=== PATIENT | male | born 1960 | race Caucasian/White ===

== ENCOUNTER 2022-12-21 13:16 | Emergency (ER) | payer OTHER ==
--- NOTE | 2022-12-21 13:25 | ERPHSYRPT ---
- History of Present Illness Time Seen by Provider: 12/21/22 13:25 Source: patient Exam Limitations: no limitations Physician History: This is a 62-year-old white male patient who is a [facility] presents with shoulder pain flareup. Patient has chronic right shoulder pain but his pain is not usually as bad as it is over the last 2 to 3 days. He did not fall or suffer any traumatic injury. His pain primarily occurs when he raises his hands above his head. Patient has a history of hypertension, gastroesophageal reflux disease and hypothyroidism. He denies chest pain. He denies shortness of breath Occurred: days ago Method of Injury: other (No acute, traumatic injury) Quality: sharpness (In the right shoulder when he raises his shoulder/hands above his head) Severity of Pain-Max: moderate Severity of Pain-Current: mild Extremities Pain Location: shoulder: right Modifying Factors: Improves With: movement (Raising his right hand above his head because of sharp pain in his right shoulder) Associated Symptoms: none Allergies/Adverse Reactions: cyclobenzaprine [From Flexeril] Allergy (Verified 12/21/22 13:35) morphine Allergy (Verified 12/21/22 13:35) gabapentin Adverse Reaction (Verified 12/21/22 13:35) Home Medications: Levothyroxine Sodium [Synthroid] 25 mcg PO DAILY 12/21/22 [History] Metoprolol Tartrate 25 mg [Lopressor 25MG Tab] 25 mg PO DAILY 12/21/22 [History] Pantoprazole 20 mg [Protonix 20MG Tablet] 20 mg PO DAILY 12/21/22 [History] Vit D3/Vit K2/Calc Frutoborate [Move Free Vviqo-Lihyny-L2-D3] 1 each PO DAILY 12/21/22 [History] Travel Risk - International Travel Have you traveled outside of the country in past 3 weeks: No - Coronavirus Screening Are you exhibiting any of the following symptoms?: No Close contact with a COVID-19 positive Pt in past 14-21 Days: No - Review of Systems Constitutional: No Symptoms Eyes: No Symptoms Ears, Nose, & Throat: No Symptoms Respiratory: No Symptoms Cardiac: No Symptoms Abdominal/Gastrointestinal: No Symptoms Genitourinary Symptoms: No Symptoms Musculoskeletal: Joint Pain (Sharp right pain when he raises his hand above his right shoulder) Skin: No Symptoms Neurological: No Symptoms Psychological: No Symptoms Endocrine: No Symptoms Hematologic/Lymphatic: No Symptoms Immunological/Allergic: No Symptoms All Other Systems: Reviewed and Negative - Past Medical History Pertinent Past Medical History: Yes - Past Surgical History Past Surgical History: Yes - Nursing Vital Signs Nursing Vital Signs: Initial Vital Signs Temperature 97.2 F 12/21/22 13:31 Pulse Rate 57 L 12/21/22 13:31 Respiratory Rate 18 12/21/22 13:31 Blood Pressure 107/69 12/21/22 13:31 O2 Sat by Pulse Oximetry 99 12/21/22 13:31 Pain Scale Pain Intensity 8 - Physical Exam General Appearance: no apparent distress, alert Eyes, Ears, Nose, Throat Exam: normal ENT inspection, moist mucous membranes Neck Exam: normal inspection, non-tender, supple, full range of motion Cardiovascular/Respiratory Exam: chest non-tender, no respiratory distress Abdominal Exam: non-tender Back Exam: normal inspection, normal range of motion, No CVA tenderness, No v ertebral tenderness Shoulder Exam: normal inspection, no evidence of injury, normal ROM, pain (When he raises his right hand above his head he has pain in his right shoulder) Elbow/Forearm Exam: normal inspection, non-tender, no evidence of injury, normal ROM Wrist Exam: normal inspection, non-tender, no evidence of injury, normal ROM Hand Exam: normal inspection, non-tender, no evidence of injury, normal ROM Neuro/Tendon Exam: normal sensation, normal motor functions, normal tendon functions, responds to pain, no evidence tendon injury Mental Status Exam: alert, oriented x 3, cooperative Skin Exam: normal color, warm, dry SpO2 Interpretation: normal O2 Delivery: Room Air - Course Nursing assessment & vital signs reviewed: Yes - Progress Progress: improved, pain not gone completely Progress Note: 12/21/22 14:21 This patient's medical issues 1 of low complexity. The level of complexity and the work-up performed is based on review of the patient's past medical history, review of the patient's drug allergy list, review of the patient's medication list, history present illness and physical findings on examination. The work-up in this patient does not require any laboratory studies or radiographic studies. We will treat his symptoms. He did not have any acute traumatic injury. He does not have chest pain and I think it is very low likelihood of any chest or cardiac issue. This patient has recurrent exacerbation of a chronic problem, that he has, right shoulder pain. We will provide him with an injection of Solu-Medrol intramuscularly and then discharge him to home with a prescription to be remotely sent to his pharmacy that includes prednisone and Robaxin muscle relaxant. Counseled pt/family regarding: diagnosis, need for follow-up Medical Desision Making - Diagnostic Testing Diagnostic test were ordered, analyzed, and reviewed by me: No - Risk of complications The pt has a mod risk of morbidity or mortality based on: Need for prescription drug management - Departure Departure Disposition: Home Clinical Impression: Chronic right shoulder pain Condition: Stable Critical Care Time: No Additional Instructions: Take your medication as prescribed. Call your prescribing provider today to make arrangements for follow-up appointment in the next 3 to 5 days. Prescriptions: Prednisone 10 mg [Deltasone 10 mg] 10 mg PO TID #12 tablet Methocarbamol [Robaxin] 500 mg PO QID PRN #20 tablet PRN Reason: Muscle Spasms
[2022-12-21 13:32] VITALS: O2SAT 99
[2022-12-21] MEDS ORDERED: solu-MEDROL 125 MG, Sterile H2O 10 ml 2 ML IM ONE ×2 (14:26)
[2022-12-21] MEDS ORDERED: Sterile H2O 10 ml IJ ONE (14:34)
[2022-12-21] MEDS ORDERED: solu-MEDROL ONE (14:34)
[2022-12-21 14:39] VITALS: BP 96/66; PULSE 60
== END 2022-12-21 14:43 | disposition home or self-care (01) ==
LOC: ED 13:16
DX: G89.29 Other chronic pain (principal); M25.511 Pain in right shoulder; I10 Essential (primary) hypertension; Z79.52 Long term (current) use of systemic steroids; Z79.899 Other long term (current) drug therapy
CPT/HCPCS: 96372; 99282; J2930

== ENCOUNTER 2023-04-04 11:42 | Emergency (ER) | payer OTHER ==
[2023-04-04] MEDS ORDERED: SUBLIMAZE 100 MCG/2 ML IV ONE (11:46)
[2023-04-04 11:49] VITALS: TEMP 97.2
[2023-04-04] MEDS ORDERED: Sodium Chloride 0.9% 1000 ML 1,000 ML IV SCH (12:00)
[2023-04-04 12:16] LABS: Absolute Neutrophil Ct (ANC) 3.83 x10^3/uL (1.4-6.9); BASOPHIL % 0.6 % (0.0-0.4); Basophil (Absolute #) 0.04 x10^3/uL (0-0.4); Eosinophil % 5.6 % (0.00-5.0); Eosinophil (Absolute #) 0.36 x10^3/uL (0-0.5); Hematocrit 42.2 % (42-50); Hemoglobin 14.3 g/dL (12.5-18.0); IMMATURE GRAN # 0.01 x10^3u/L (0.00-0.03); IMMATURE GRAN % 0.2 % (0.00-0.4); Lymphocyte (Absolute #) 1.59 x10^3/uL (1.0-4.6); Lymphocytes % 24.9 % (24.0-44.0); Mean Cell Volume 95.3 fL (78-100); Mean Corpuscular Hemoglobin 32.3 pg (26-32); Mean Corpuscular Hgb Concent. 33.9 g/dL (32-36); Monocyte (Absolute #) 0.55 x10^3/uL (0.0-1.3); Monocytes % 8.6 % (0.0-12.0); Neutrophil % 60.1 % (36.0-66.0); Platelet Count 253 x10^3/uL (150-450); Red Blood Count 4.43 x10^6/uL (4.1-5.6); Red Cell Distribution Width 13.2 % (11.5-14.0); White Blood Count 6.4 x10^3/uL (4.0-10.5)
[2023-04-04] MEDS ORDERED: SUBLIMAZE 100 MCG/2 ML ONE (12:28)
[2023-04-04] MEDS ORDERED: Sodium Chloride 0.9% 1000 ML 1,000 ML ONE (12:29)
[2023-04-04 12:30] LABS: ALBUMIN 4.2 g/dL (3.5-5.0); ALKALINE PHOSPHATASE 138 U/L (38-126); ANION GAP 13.9 MEQ/L (5-15); BLOOD UREA NITROGEN 29 mg/dL (9-20); CHLORIDE 105 mmol/L (98-107); Calcium 9.2 mg/dL (8.4-10.2); Carbon Dioxide 22 mmol/L (22-30); Creatinine 1 1.26 mg/dL (0.66-1.25); EST GLOMERULAR FILTRATION RATE > 60.0 ML/MIN; Glucose 103 mg/dL (74-106); LIPASE 38 U/L (23-300); MAGNESIUM 1.6 mg/dL (1.6-2.3); Potassium 4.3 mmol/L (3.5-5.1); SGOT/AST 25 U/L (17-59); SGPT/ALT 18 U/L (0-50); SODIUM 137 mmol/L (137-145); Total Protein 7.5 g/dL (6.3-8.2)
[2023-04-04 12:33] LABS: D-DIMER QUANTITATIVE 0.57 mg/L (0.0-0.50); INR 0.98 (0.8-3.0); PROTIME 10.7 SECONDS (9.4-12.5)
[2023-04-04 12:59] LABS: Appearance Clear (Clear); Bacteria None Seen /HPF (None Seen); Bilirubin Negative (Negative); Blood Negative (Negative); Epithelial Cells None Seen /HPF (None Seen); Glucose, Urine Negative (Negative); Hyaline Casts NONE SEEN /LPF (0-2); Ketones Negative (Negative); Leukocyte Esterase Negative (Negative); Nitrite Negative (Negative); Ph 5.5 (4.6-8.0); Protein,Urine Dip Negative (Negative); RBC 0-2 /HPF (0-5); Specific Gravity <=1.005 (1.005-1.030); Urobilinogen 0.2 mg/dL (0.2); WBC 0-2 /HPF (0-5)
[2023-04-04 12:59] LABS: Erythrocyte Sedimentation Rate 67 mm/hr (0-15)
[2023-04-04 13:03] LABS: INFLUENZA A NEGATIVE (NEGATIVE); INFLUENZA B NEGATIVE (NEGATIVE); RESPIRATORY SYNCTIAL VIRUS NEGATIVE (NEGATIVE); SARS-CoV-2 Xpert Express NEGATIVE (NEGATIVE)
--- NOTE | 2023-04-04 13:09 | XRAY ---
CLINICAL HISTORY:pain COMPARISON:None TECHNIQUE:X ray of the chest, PA view FINDINGS: Prominent right hilar bronchovascular markings is seen. Enlarged cardiac size is seen. Minimal blunting of left costophrenic angle is seen, could be pleural thickening / effusion. Radiographic examination of the chest demonstrates clear lungs. Normal configuration of the mediastinum. The viv are normal in size and position. The bony thorax is unremarkable. IMPRESSION: 1. Prominent right hilar bronchovascular markings is seen. 2. Cardiomegaly for ECHO correlation. 3. Minimal blunting of left costophrenic angle is seen, could be pleural thickening / effusion. Electronically Signed by: Alejandro Abreu MD. (04/04/2023 12:08:10 TRANSPORT ASSISTANT)
[2023-04-04 13:10] LABS: ADD URINE CULTURE? NO (NO)
--- NOTE | 2023-04-04 14:12 | XRAY ---
CLINICAL HISTORY:pain COMPARISON:None. TECHNIQUE:Contiguous 3.[address] images of the chest were acquired with the administration of intravenous contrast. Coronal and sagittal reconstructions were obtained. 20 cc Multihance was administered for post contrast images. FINDINGS: No evidence of pulmonary embolism. Emphysematous changes are seen involving the scanned lungs manifested by hyperinflated lungs, widened retrosternal space, low flat diaphragm, transverse parallel ribs & ribbon shaped heart associated with scattered bilateral emphysematous bullae & sub-pleural blebs para-septal in location predominantly involving more the right lung apex, in addition fine linear atelectatic/fibrous bands reaching the pleural surface are seen involving the left lung. 6 mm perifissural calcified nodule noted in apical segment of left upper lobe mostly fibrotic for 3-6 monthly LDCT follow up. The scanned pulmonary parenchyma shows no definite consolidative lesions. No free or encysted pleural effusion. Heart size is normal, and there is no pericardial effusion. No pathologically enlarged mediastinal, hilar or axillary lymph node was identified. There is no definite mass lesion in the chest wall. Degenerative changes of the visualized scanned spine with no osseous abnormality detected. The scanned upper abdomen is unremarkable. IMPRESSION: 1. No evidence of pulmonary embolism. 2. CT findings kept with bilateral emphysematous pulmonary changes associated with right apical fibrous/atelectatic bands as forementioned for clinical correlation. 3. 6 mm perifissural nodule was noted in the apical segment of the left upper lobe mostly fibrotic for 3-6 monthly LDCT follow-ups (LUNG RAD III). Electronically Signed by: Alejandro Abreu MD. (04/04/2023 13:10:41 CHIEF DISPATCHER SERVICE)
--- NOTE | 2023-04-04 14:22 | XRAY ---
CLINICAL HISTORY:pain COMPARISON:None TECHNIQUE:MSCT For the brain, without contrast. Images were sent through PACs for diagnostic interpretation. FINDINGS: Mild widening of the frontoparietal sulci and sylvian fissures, and basal cisterns. Findings Are consistent with a normal aging brain. Ischemic deep white matter changes are seen at the forceps minor, forceps major, periventricular, and centrum semiovale regions expressed by hypodense deep white matter findings are consistent with the consequences of small vessel disease. No midline shifts or deformity. No intracerebral or extra axial hematoma. Normal size and configuration of the cerebral ventricles. Normal CT appearance of the posterior fossa structures, namely the cerebellar hemispheres, brainstem, and cerebellar peduncles. The IACs are unremarkable. The cerebellopontine angles are clear. The pituitary gland, the pineal gland, and the optic chiasm are unremarkable. The osseous structures in the skull base are unremarkable. No definite calvarial fractures. The scanned paranasal sinuses show bilateral ethmoid and frontal sinusitis with a deviated nasal septum to the left and a spur is noted. IMPRESSION: 1. Mild widening of the frontoparietal sulci and sylvian fissures, and basal cisterns. Findings are consistent with a normal aging brain. 2. Ischemic deep white matter changes are seen at the forceps minor, forceps major, periventricular, and centrum semiovale regions expressed by hypodense deep white matter findings are consistent with the consequences of small vessel disease. 3. No intracerebral or extra axial hematoma. 4. The scanned paranasal sinuses show bilateral ethmoid and frontal sinusitis with a deviated nasal septum to the left and a spur is noted. Electronically Signed by: Alejandro Abreu MD. (04/04/2023 13:22:40 GINSENG FARMER)
--- NOTE | 2023-04-04 15:39 | XRAY ---
CLINICAL HISTORY:pain COMPARISON:None. TECHNIQUE:A CT scan of the abdomen and pelvis was performed with and without IV contrast. No oral contrast. Coronal and sagittal reconstructive images were also obtained. FINDINGS: A scan through the lower chest reveals an unremarkable lung basis and heart. Abdomen: The liver is of average size and measures 13.5 cm. No focal or diffuse parenchymal abnormality. The portal vein, intrahepatic biliary radicals, and the bile ducts are normal. The gallbladder is distended and shows no definite stones. There is no evidence of wall thickening/ pericholecystic collection. The spleen, pancreas, and adrenal glands are unremarkable. Three small splenic hilar splenules or LNs noted. The kidneys are unremarkable. They are normal in size and shape. No calculi or hydronephrosis. Small right renal simple cortical cyst noted. The ascending colon, the transverse colon, the descending colon, visualized small bowel loops are unremarkable. There is no evidence of significant enlargement of the mesenteric or retroperitoneal lymph nodes. Atherosclerotic changes of the aorta and its branches with a right external iliac intact functioning stent. Pelvis: The urinary bladder is unremarkable. The rectosigmoid colon is unremarkable. The prostate is of average size. Bilateral small fat-containing inguinal hernia. Multiple pelvic phleboliths noted The pelvic vasculature is unremarkable. No evidence of pelvic lymphadenopathy. No definite bony abnormalities could be depicted. IMPRESSION: Atherosclerotic changes of the aorta and its branches with right external iliac intact functioning stent. No other significant acute intra abdominal findings noted. Electronically Signed by: Alejandro Abreu MD. (04/04/2023 14:38:29 JEWELRY INSPECTOR)
[2023-04-04 16:09] VITALS: O2SAT 93
--- NOTE | 2023-04-04 16:54 | ERPHSYRPT ---
- History of Present Illness Time Seen by Provider: 04/04/23 11:50 Historian: patient, family Exam Limitations: no limitations Patient Subjective Stated Complaint: Pt states "I woke up this morning and I have had a horrible headache and chest pain." Triage Nursing Assessment: Pt presented alert and oriented X 3, skin pwd. Pt ambulates with an upright steady gait, able to speak in clear full sentences. PT has congesion, is resting comfortably on the bed. Physician History: Patient is a 63-year-old white male who awoke this morning with a severe headache some shortness of breath and severe substernal chest pain he denies any nausea vomiting diarrhea or sweating. 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 Through the ID. Timing/Duration: today Activities at Onset: none Location: substernal Associated Symptoms: hurts to breathe, weakness, headache Nitro Today/Relief: no nitro taken today Aspirin Treatment Today: no aspirin today Allergies/Adverse Reactions: cyclobenzaprine [From Flexeril] Allergy (Verified 12/21/22 13:35) morphine Allergy (Verified 12/21/22 13:35) gabapentin Adverse Reaction (Verified 12/21/22 13:35) Home Medications: Levothyroxine Sodium [Synthroid] 25 mcg PO DAILY 12/21/22 [History] Metoprolol Tartrate 25 mg [Lopressor 25MG Tab] 25 mg PO DAILY 12/21/22 [History] Pantoprazole 20 mg [Protonix 20MG Tablet] 20 mg PO DAILY 12/21/22 [History] Vit D3/Vit K2/Calc Frutoborate [Move Free Cowyq-Phcnee-M6-D3] 1 each PO DAILY 12/21/22 [History] Prednisone 10 mg [Deltasone 10 mg] 10 mg PO DAILY 04/04/23 [History] Hx Tetanus, Diphtheria Vaccination/Date Given: No Hx Influenza Vaccination/Date Given: Yes Hx Pneumococcal Vaccination/Date Given: Yes Immunizations Up to Date: No Travel Risk - International Travel Have you traveled outside of the country in past 3 weeks: No - Coronavirus Screening Are you exhibiting any of the following symptoms?: Yes Symptoms: Headaches/Body Aches/Fatigue Close contact with a COVID-19 positive Pt in past 14-21 Days: No - Vaccine Status Have you recieved a Covid-19 vaccination: No - Review of Systems Constitutional: No Fever, No Chills Eyes: No Symptoms Ears, Nose, & Throat: No Symptoms Respiratory: Dyspnea, No Cough Cardiac: Chest Pain, No Edema, No Syncope Abdominal/Gastrointestinal: No Abdominal Pain, No Nausea, No Vomiting, No Diarrhea Genitourinary Symptoms: No Dysuria Musculoskeletal: No Back Pain, No Neck Pain Skin: No Rash Neurological: Headache, No Dizziness, No Focal Weakness, No Sensory Changes Psychological: No Symptoms Endocrine: No Symptoms All Other Systems: Reviewed and Negative - Past Medical History Pertinent Past Medical History: Yes Cardiac History: Arrhythmia, Coronary Artery Disease, Hypertension Endocrine Medical History: Hypothyroidism Musculoskeletal History: Arthritis, Degenerative Disk Disease GI Medical History: GERD Other Medical History: shoulder and neck pain - Past Surgical History Past Surgical History: Yes Musculoskeletal: Orthopedic Surgery Other Surgical History: ablation, arotic bypass, neck - Social History Smoking Status: Current every day smoker How long have you smoked: years Exposure to second hand smoke: Yes Drug Use: none Patient Lives Alone: No - Nursing Vital Signs Nursing Vital Signs: Initial Vital Signs Temperature 97.2 F 04/04/23 11:43 Pulse Rate 70 04/04/23 11:43 Respiratory Rate 24 04/04/23 11:43 Blood Pressure 112/79 04/04/23 11:43 O2 Sat by Pulse Oximetry 97 04/04/23 11:43 Pain Scale Pain Intensity 0 - Physical Exam General Appearance: no apparent distress, alert Eye Exam: PERRL/EOMI, eyes nml inspection Ears, Nose, Throat Exam: normal ENT inspection, moist mucous membranes Neck Exam: normal inspection, non-tender, supple, full range of motion Respiratory Exam: normal breath sounds, lungs clear, No respiratory distress Cardiovascular Exam: regular rate/rhythm, normal heart sounds Gastrointestinal/Abdomen Exam: soft, No tenderness, No mass Back Exam: normal inspection, No CVA tenderness, No vertebral tenderness Extremity Exam: normal inspection, normal range of motion Neurologic Exam: alert, oriented x 3, cooperative, normal mood/affect, sensation nml, No motor deficits Skin Exam: normal color, warm, dry SpO2: 93 - Course Nursing assessment & vital signs reviewed: Yes EKG Interpreted by Me: RATE (64), Sinus Rhythm, NORMAL AXIS, NORMAL INTERVALS, NORMAL QRS, NORMAL ST-T - Radiology Exams Chest X-ray Interpretation: Reviewed by me - CT Exams Head CT Interpretation: Tele-radiologist Report Chest CT Interpretation: Tele-radiologist Report Abdomen/Pelvis CT Interpretation: Tele-radiologist Report Ordered Tests: Active Orders 24 hr Category Date Time Status EKG-ER Only STAT Care 04/04/23 11:46 Active IV Insertion STAT Care 04/04/23 11:46 Active CHEST 1 VIEW (PORTABLE) Stat Exams 04/04/23 12:08 Completed CHEST WITH CONTRAST [CT] Stat Exams 04/04/23 13:16 Completed CTA ABD/PEL W AND/OR W/O CONTR [CT] Stat Exams 04/04/23 12:46 Completed HEAD WITHOUT CONTRAST [CT] Stat Exams 04/04/23 12:46 Completed CBC W DIFF Stat Lab 04/04/23 11:50 Completed CMP Stat Lab 04/04/23 11:50 Completed D-DIMER QUANTITATIVE Stat Lab 04/04/23 11:50 Completed Erythrocyte Sedimentation Rate Stat Lab 04/04/23 11:50 Completed LIPASE Stat Lab 04/04/23 11:50 Completed Lactic Acid Stat Lab 04/04/23 11:56 Completed MAGNESIUM Stat Lab 04/04/23 11:50 Completed NT PRO BNPII Stat Lab 04/04/23 11:50 Completed PROTIME WITH INR Stat Lab 04/04/23 11:50 Completed PTT Stat Lab 04/04/23 11:50 Completed TROPONIN Stat Lab 04/04/23 11:46 Completed TROPONIN Stat Lab 04/04/23 15:55 Completed UA W/RFX UR CULTURE Stat Lab 04/04/23 12:49 Completed Medication Summary Generic Name Dose Route Start Last Admin Trade Name Freq PRN Reason Stop Dose Admin Sodium Chloride 1,000 mls @ 100 mls/hr 04/04/23 12:00 04/04/23 12:31 Sodium Chloride 0.9% 1000 Ml IV 05/04/23 11:59 100 mls/hr .Q10H NOLAN Administration Discontinued Medications Generic Name Dose Route Start Last Admin Trade Name Freq PRN Reason Stop Dose Admin Fentanyl Citrate 75 mcg 04/04/23 11:46 04/04/23 12:30 Fentanyl Citrate 100 Mcg/2 Ml* Vial IV 04/04/23 11:47 75 mcg STAT ONE Administration Fentanyl Citrate Confirm 04/04/23 12:28 Fentanyl Citrate 100 Mcg/2 Ml* Vial Administered 04/04/23 12:29 Dose 100 mcg .ROUTE .K-MED ONE Lab/Rad Data: Laboratory Result Diagrams 04/04/23 11:50 04/04/23 11:50 Laboratory Results 04/04/23 04/04/23 04/04/23 Range/Units 15:55 12:49 12:20 WBC (4.0-10.5) x10^3/uL RBC (4.1-5.6) x10^6/uL Hgb (12.5-18.0) g/dL Hct (42-50) % MCV (78-100) fL MCH (26-32) pg MCHC (32-36) g/dL RDW (11.5-14.0) % Plt Count (150-450) x10^3/uL MPV (7.5-11.0) fL Gran % (36.0-66.0) % Immature Gran % (Auto) (0.00-0.4) % Nucleat RBC Rel Count (0.00-0.1) % Eos # (Auto) (0-0.5) x10^3/uL Immature Gran # (Auto) (0.00-0.03) x10^3u/L Absolute Lymphs (auto) (1.0-4.6) x10^3/uL Absolute Monos (auto) (0.0-1.3) x10^3/uL Absolute Nucleated RBC (0.00-0.01) x10^3u/L Lymphocytes % (24.0-44.0) % Monocytes % (0.0-12.0) % Eosinophils % (0.00-5.0) % Basophils % (0.0-0.4) % Absolute Granulocytes (1.4-6.9) x10^3/uL Basophils # (0-0.4) x10^3/uL ESR (0-15) mm/hr PT (9.4-12.5) SECONDS INR (0.8-3.0) APTT (25.1-36.5) SECONDS D-Dimer (0.0-0.50) mg/L Sodium (137-145) mmol/L Potassium (3.5-5.1) mmol/L Chloride (98-107) mmol/L Carbon Dioxide (22-30) mmol/L Anion Gap (5-15) MEQ/L BUN (9-20) mg/dL Creatinine (0.66-1.25) mg/dL Estimated GFR ML/MIN Glucose (74-106) mg/dL Lactic Acid (0.4-2.0) Calcium (8.4-10.2) mg/dL Magnesium (1.6-2.3) mg/dL Total Bilirubin (0.2-1.3) mg/dL AST (17-59) U/L ALT (0-50) U/L Alkaline Phosphatase (38-126) U/L Troponin I < 0.012 (0.000-0.034) ng/mL NT-Pro-B Natriuret Pep (<300) pg/mL Serum Total Protein (6.3-8.2) g/dL Albumin (3.5-5.0) g/dL Lipase (23-300) U/L Urine Color Yellow (Yellow) Urine Appearance Clear (Clear) Urine pH 5.5 (4.6-8.0) Ur Specific [place] <=1.005 (1.005-1.030) Urine Protein Negative (Negative) Urine Glucose (UA) Negative (Negative) mg/dL Urine Ketones Negative (Negative) Urine Blood Negative (Negative) Urine Nitrite Negative (Negative) Urine Bilirubin Negative (Negative) Urine Urobilinogen 0.2 (0.2) mg/dL Ur Leukocyte Esterase Negative (Negative) U Hyaline Cast (Auto) NONE SEEN (0-2) /LPF Urine Microscopic RBC 0-2 (0-5) /HPF Urine Microscopic WBC 0-2 (0-5) /HPF Ur Epithelial Cells None Seen (None Seen) /HPF Urine Bacteria None Seen (None Seen) /HPF Urine Culture Reflexed NO (NO) Influenza Type A Ag NEGATIVE (NEGATIVE) Influenza Type B Ag NEGATIVE (NEGATIVE) RSV (PCR) NEGATIVE (NEGATIVE) SARS-CoV-2 (PCR) NEGATIVE (NEGATIVE) 04/04/23 04/04/23 04/04/23 Range/Units 11:56 11:50 11:50 WBC (4.0-10.5) x10^3/uL RBC (4.1-5.6) x10^6/uL Hgb (12.5-18.0) g/dL Hct (42-50) % MCV (78-100) fL MCH (26-32) pg MCHC (32-36) g/dL RDW (11.5-14.0) % Plt Count (150-450) x10^3/uL MPV (7.5-11.0) fL Gran % (36.0-66.0) % Immature Gran % (Auto) (0.00-0.4) % Nucleat RBC Rel Count (0.00-0.1) % Eos # (Auto) (0-0.5) x10^3/uL Immature Gran # (Auto) (0.00-0.03) x10^3u/L Absolute Lymphs (auto) (1.0-4.6) x10^3/uL Absolute Monos (auto) (0.0-1.3) x10^3/uL Absolute Nucleated RBC (0.00-0.01) x10^3u/L Lymphocytes % (24.0-44.0) % Monocytes % (0.0-12.0) % Eosinophils % (0.00-5.0) % Basophils % (0.0-0.4) % Absolute Granulocytes (1.4-6.9) x10^3/uL Basophils # (0-0.4) x10^3/uL ESR (0-15) mm/hr PT 10.7 (9.4-12.5) SECONDS INR 0.98 (0.8-3.0) APTT 29.0 (25.1-36.5) SECONDS D-Dimer 0.57 H (0.0-0.50) mg/L Sodium (137-145) mmol/L Potassium (3.5-5.1) mmol/L Chloride (98-107) mmol/L Carbon Dioxide (22-30) mmol/L Anion Gap (5-15) MEQ/L BUN (9-20) mg/dL Creatinine (0.66-1.25) mg/dL Estimated GFR ML/MIN Glucose (74-106) mg/dL Lactic Acid 1.3 (0.4-2.0) Calcium (8.4-10.2) mg/dL Magnesium (1.6-2.3) mg/dL Total Bilirubin (0.2-1.3) mg/dL AST (17-59) U/L ALT (0-50) U/L Alkaline Phosphatase (38-126) U/L Troponin I (0.000-0.034) ng/mL NT-Pro-B Natriuret Pep 292 (<300) pg/mL Serum Total Protein (6.3-8.2) g/dL Albumin (3.5-5.0) g/dL Lipase (23-300) U/L Urine Color (Yellow) Urine Appearance (Clear) Urine pH (4.6-8.0) Ur Specific [place] (1.005-1.030) Urine Protein (Negative) Urine Glucose (UA) (Negative) mg/dL Urine Ketones (Negative) Urine Blood (Negative) Urine Nitrite (Negative) Urine Bilirubin (Negative) Urine Urobilinogen (0.2) mg/dL Ur Leukocyte Esterase (Negative) U Hyaline Cast (Auto) (0-2) /LPF Urine Microscopic RBC (0-5) /HPF Urine Microscopic WBC (0-5) /HPF Ur Epithelial Cells (None Seen) /HPF Urine Bacteria (None Seen) /HPF Urine Culture Reflexed (NO) Influenza Type A Ag (NEGATIVE) Influenza Type B Ag (NEGATIVE) RSV (PCR) (NEGATIVE) SARS-CoV-2 (PCR) (NEGATIVE) 04/04/23 04/04/23 04/04/23 Range/Units 11:50 11:50 11:46 WBC 6.4 (4.0-10.5) x10^3/uL RBC 4.43 (4.1-5.6) x10^6/uL Hgb 14.3 (12.5-18.0) g/dL Hct 42.2 (42-50) % MCV 95.3 (78-100) fL MCH 32.3 H (26-32) pg MCHC 33.9 (32-36) g/dL RDW 13.2 (11.5-14.0) % Plt Count 253 (150-450) x10^3/uL MPV 10.0 (7.5-11.0) fL Gran % 60.1 (36.0-66.0) % Immature Gran % (Auto) 0.2 (0.00-0.4) % Nucleat RBC Rel Count 0.0 (0.00-0.1) % Eos # (Auto) 0.36 (0-0.5) x10^3/uL Immature Gran # (Auto) 0.01 (0.00-0.03) x10^3u/L Absolute Lymphs (auto) 1.59 (1.0-4.6) x10^3/uL Absolute Monos (auto) 0.55 (0.0-1.3) x10^3/uL Absolute Nucleated RBC 0.00 (0.00-0.01) x10^3u/L Lymphocytes % 24.9 (24.0-44.0) % Monocytes % 8.6 (0.0-12.0) % Eosinophils % 5.6 H (0.00-5.0) % Basophils % 0.6 (0.0-0.4) % Absolute Granulocytes 3.83 (1.4-6.9) x10^3/uL Basophils # 0.04 (0-0.4) x10^3/uL ESR 67 H (0-15) mm/hr PT (9.4-12.5) SECONDS INR (0.8-3.0) APTT (25.1-36.5) SECONDS D-Dimer (0.0-0.50) mg/L Sodium 137 (137-145) mmol/L Potassium 4.3 (3.5-5.1) mmol/L Chloride 105 (98-107) mmol/L Carbon Dioxide 22 (22-30) mmol/L Anion Gap 13.9 (5-15) MEQ/L BUN 29 H (9-20) mg/dL Creatinine 1.26 H (0.66-1.25) mg/dL Estimated GFR > 60.0 ML/MIN Glucose 103 (74-106) mg/dL Lactic Acid (0.4-2.0) Calcium 9.2 (8.4-10.2) mg/dL Magnesium 1.6 (1.6-2.3) mg/dL Total Bilirubin 0.70 (0.2-1.3) mg/dL AST 25 (17-59) U/L ALT 18 (0-50) U/L Alkaline Phosphatase 138 H (38-126) U/L Troponin I < 0.012 (0.000-0.034) ng/mL NT-Pro-B Natriuret Pep (<300) pg/mL Serum Total Protein 7.5 (6.3-8.2) g/dL Albumin 4.2 (3.5-5.0) g/dL Lipase 38 (23-300) U/L Urine Color (Yellow) Urine Appearance (Clear) Urine pH (4.6-8.0) Ur Specific [place] (1.005-1.030) Urine Protein (Negative) Urine Glucose (UA) (Negative) mg/dL Urine Ketones (Negative) Urine Blood (Negative) Urine Nitrite (Negative) Urine Bilirubin (Negative) Urine Urobilinogen (0.2) mg/dL Ur Leukocyte Esterase (Negative) U Hyaline Cast (Auto) (0-2) /LPF Urine Microscopic RBC (0-5) /HPF Urine Microscopic WBC (0-5) /HPF Ur Epithelial Cells (None Seen) /HPF Urine Bacteria (None Seen) /HPF Urine Culture Reflexed (NO) Influenza Type A Ag (NEGATIVE) Influenza Type B Ag (NEGATIVE) RSV (PCR) (NEGATIVE) SARS-CoV-2 (PCR) (NEGATIVE) - Progress Progress: improved Air Movement: good Progress Note: 04/04/23 16:53 After work-up was completed the results were discussed with the patient admission to the hospital was reviewed Erin recommended and refused by the patient primarily because he could not smoke. He is going home he is followed at the [facility] he was invited to come back if he changed his mind about admission the exact etiology of chest pain remains very elusive. Blood Culture(s) Obtained: No Antibiotics given: No Medical Desision Making - Independent Historian Additional History obtained from: Spouse - Diagnostic Testing Diagnostic test were ordered, analyzed, and reviewed by me: Yes Radiological Interpretation: Reviewed by me - Risk of complications Low Risk: Low risk of morbidity from additional dx testing or treatment - Departure Departure Disposition: Home Clinical Impression: Chest pain Condition: Stable Critical Care Time: No Referrals: HOSPITAL,'S [Primary Care Provider] - Follow up/PCP as directed Instructions: Chest Pain (DC)
[2023-04-04 17:02] VITALS: BP 113/66; PULSE 64; RESP 23
== END 2023-04-04 17:10 | disposition home or self-care (01) ==
LOC: ED 11:42
DX: R07.9 Chest pain, unspecified (principal); R51.9 Headache, unspecified; R06.02 Shortness of breath; I10 Essential (primary) hypertension; Z79.52 Long term (current) use of systemic steroids; Z79.899 Other long term (current) drug therapy; Z28.310 Unvaccinated for COVID-19; Z72.0 Tobacco use
CPT/HCPCS: 0241U; 36000; 36415; 70450; 71045; 71260; 74174; 80053; 81001; 83605; 83690; 83735; 83880; 84484; 85025; 85379; 85610; 85652; 85730; 93005; 96374; 99284; J3010

== ENCOUNTER 2024-02-03 14:18 | Emergency (ER) | payer OTHER ==
--- NOTE | 2024-02-03 14:31 | ERPHSYRPT ---
- History of Present Illness Time Seen by Provider: 02/03/24 14:31 Historian: patient Exam Limitations: no limitations Physician History: This is a 64-year-old white male patient who arrives by private vehicle secondary to worsening left-sided abdominal pain that has been present for 2 months. The patient ordinarily receives his medical care at the [facility]. Today, he had sudden worsening of his left-sided abdominal pain and associated nausea vomiting and belching symptoms. Patient denies chest pain. Patient denies shortness of breath. Patient has had an aortoiliac bypass graft placed in the past. He has had a cardiac ablation in the past. He continues to smoke a pack of cigarettes each day. Patient has history of cardiac arrhythmia, degenerative disc disease, hypothyroidism, hypertension and gastroesophageal reflux disease. Patient is currently taking doxycycline for treatment of a urinary tract infection. Timing/Duration: today (Symptoms worse today), intermittent, worse (Today worse), other (Left-sided abdominal pain present intermittently for 2 months) Quality: burning, sharpness Abdominal Pain Onset Location: LLQ Pain Radiation: no radiation Severity of Pain-Max: moderate Severity of Pain-Current: moderate Allergies/Adverse Reactions: cyclobenzaprine [From Flexeril] Allergy (Verified 02/03/24 14:26) morphine Allergy (Verified 02/03/24 14:26) gabapentin Adverse Reaction (Verified 02/03/24 14:26) Home Medications: Levothyroxine Sodium [Synthroid] 25 mcg PO DAILY 12/21/22 [History] Metoprolol Tartrate 25 mg [Lopressor 25MG Tab] 25 mg PO DAILY 12/21/22 [History] Pantoprazole 20 mg [Protonix 20MG Tablet] 20 mg PO DAILY 12/21/22 [History] Vit D3/Vit K2/Calc Frutoborate [Move Free Esalr-Rruoum-I3-D3] 1 each PO DAILY 12/21/22 [History] Prednisone 10 mg [Deltasone 10 mg] 10 mg PO DAILY 04/04/23 [History] Hx Tetanus, Diphtheria Vaccination/Date Given: No Hx Influenza Vaccination/Date Given: Yes Hx Pneumococcal Vaccination/Date Given: Yes - Past Medical History Pertinent Past Medical History: Yes Cardiac History: Arrhythmia, Coronary Artery Disease, Hypertension Endocrine Medical History: Hypothyroidism Musculoskeletal History: Arthritis, Degenerative Disk Disease GI Medical History: GERD Other Medical History: shoulder and neck pain - Past Surgical History Past Surgical History: Yes Musculoskeletal: Orthopedic Surgery Other Surgical History: ablation, arotic bypass, neck - Social History Smoking Status: Current every day smoker How long have you smoked: years Exposure to second hand smoke: Yes Drug Use: none Patient Lives Alone: No - Nursing Vital Signs Nursing Vital Signs: Initial Vital Signs Temperature 96.6 F 02/03/24 14:27 Pulse Rate 70 02/03/24 14:27 Respiratory Rate 20 02/03/24 14:27 Blood Pressure 172/104 02/03/24 14:27 O2 Sat by Pulse Oximetry 98 02/03/24 14:27 Pain Scale Pain Intensity 6 Ordered Tests: Active Orders 24 hr Category Date Time Status IV Insertion STAT Care 02/03/24 14:56 Active ABDOMEN AND PELVIS W/0 CONTRAS [CT] Stat Exams 02/03/24 14:57 Completed AMYLASE Stat Lab 02/03/24 14:45 Completed CBC W DIFF Stat Lab 02/03/24 14:45 Completed CMP Stat Lab 02/03/24 14:45 Completed LIPASE Stat Lab 02/03/24 14:45 Completed UA W/RFX UR CULTURE Stat Lab 02/03/24 14:59 Completed Lab/Rad Data: Laboratory Result Diagrams 02/03/24 14:45 02/03/24 14:45 Laboratory Results 02/03/24 02/03/24 02/03/24 Range/Units 14:59 14:45 14:45 WBC 5.2 (4.23-9.07) x10^3/uL RBC 4.51 L (4.63-6.08) x10^6/uL Hgb 14.1 (13.7-17.5) g/dL Hct 42.1 (40.1-51.0) % MCV 93.3 H (79.0-92.2) fL MCH 31.3 (25.7-32.2) pg MCHC 33.5 (32.3-36.5) g/dL RDW 14.1 (11.6-14.4) % Plt Count 282 (163-337) x10^3/uL MPV 9.6 (9.4-12.4) fL Gran % 47.8 (34.0-67.9) % Immature Gran % (Auto) 0.0 L (0.001-0.429) % Nucleat RBC Rel Count 0.0 (0.00-0.2) % Eos # (Auto) 0.19 (0.04-0.54) x10^3/uL Immature Gran # (Auto) 0.00 L (0.001-0.031) x10^3u/L Absolute Lymphs (auto) 1.86 (1.32-3.57) x10^3/uL Absolute Monos (auto) 0.60 (0.30-0.82) x10^3/uL Absolute Nucleated RBC 0.00 (0.00-0.012) x10^3u/L Lymphocytes % 35.8 (21.8-53.1) % Monocytes % 11.5 (5.3-12.2) % Eosinophils % 3.7 (0.8-7.0) % Basophils % 1.2 (0.2-1.2) % Absolute Granulocytes 2.49 (1.78-5.38) x10^3/uL Basophils # 0.06 (0.01-0.08) x10^3/uL Sodium 138 (135-145) mmol/L Potassium 4.2 (3.5-5.1) mmol/L Chloride 105 (98-107) mmol/L Carbon Dioxide 26 (22-30) mmol/L Anion Gap 10.7 (5-15) MEQ/L BUN 18 (9-20) mg/dL Creatinine 1.13 (0.66-1.25) mg/dL Estimated GFR 72.6 ML/MIN Glucose 91 (74-106) mg/dL Calcium 9.1 (8.4-10.2) mg/dL Total Bilirubin 0.60 (0.2-1.3) mg/dL AST 24 (17-59) U/L ALT 16 (0-50) U/L Alkaline Phosphatase 138 H (38-126) U/L Serum Total Protein 7.0 (6.3-8.2) g/dL Albumin 3.9 (3.5-5.0) g/dL Amylase 106 (30-110) U/L Lipase 40 (23-300) U/L Urine Color Yellow (Yellow) Urine Appearance Clear (Clear) Urine pH 6.5 (4.6-8.0) Ur Specific [place] 1.010 (1.005-1.030) Urine Protein Negative (Negative) Urine Glucose (UA) Negative (Negative) mg/dL Urine Ketones Negative (Negative) Urine Blood Negative (Negative) Urine Nitrite Negative (Negative) Urine Bilirubin Negative (Negative) Urine Urobilinogen 0.2 (0.2) mg/dL Ur Leukocyte Esterase Negative (Negative) U Hyaline Cast (Auto) NONE SEEN (0-2) /LPF Urine Microscopic RBC 0-2 (0-5) /HPF Urine Microscopic WBC 0-2 (0-5) /HPF Ur Epithelial Cells None Seen (None Seen) /HPF Urine Bacteria None Seen (None Seen) /HPF Urine Culture Reflexed NO (NO) - Progress Progress Note: 02/03/24 15:50 My medical decision making and the assignment of moderate complexity to this patient's medical issue today is based on review of the patient's past medical history, review of the patient's medication list, review of patient drug allergy list, history present illness and physical findings on examination. The workup in this patient includes intravenous line placement, CBC, CMP, amylase, lipase, urinalysis, CT scan abdomen pelvis without contrast. Differential diagnosis includes but not limited to pancreatitis, abdominal wall/musculoskeletal pain, intra-abdominal intrapelvic acute findings including colitis or bowel obstruction, urinary tract infection, ureterolithiasis 02/03/24 16:41 I interpreted the patient's laboratory data results. Based on the laboratory data results, there are no acute, emergent medical issues today. CT scan of the abdomen pelvis was interpreted by the radiologist and I reviewed the impression. The impression states scattered arteriosclerotic disease right iliac/common femoral stents. New borderline cardiomegaly with out CHF findings. Counseled pt/family regarding: lab results, diagnosis, need for follow-up, rad results Medical Desision Making - Diagnostic Testing Diagnostic test were ordered, analyzed, and reviewed by me: Yes Radiological Interpretation: Reviewed by me, Teleradiologist Report - Risk of complications Low Risk: Low risk of morbidity from additional dx testing or treatment - Departure Departure Disposition: Home Clinical Impression: Left sided abdominal pain Condition: Stable Critical Care Time: No Referrals: HOSPITAL,'S [Primary Care Provider] - Follow up/PCP as directed Additional Instructions: If there are no contraindications, use Tylenol and ibuprofen for pain control. Call your primary care provider on 02/06/2024, to make arrangements for follow-up appointment for further evaluation management and to be seen in the next 5 to 7 days. Take all your medications as prescribed.
[2024-02-03 14:35] VITALS: BP 172/104; PULSE 70; RESP 20; TEMP 96.6; O2SAT 98
[2024-02-03 15:08] LABS: Absolute Neutrophil Ct (ANC) 2.49 x10^3/uL (1.78-5.38); BASOPHIL % 1.2 % (0.2-1.2); Basophil (Absolute #) 0.06 x10^3/uL (0.01-0.08); Eosinophil % 3.7 % (0.8-7.0); Eosinophil (Absolute #) 0.19 x10^3/uL (0.04-0.54); Hematocrit 42.1 % (40.1-51.0); Hemoglobin 14.1 g/dL (13.7-17.5); Lymphocyte (Absolute #) 1.86 x10^3/uL (1.32-3.57); Lymphocytes % 35.8 % (21.8-53.1); Mean Cell Volume 93.3 fL (79.0-92.2); Mean Corpuscular Hemoglobin 31.3 pg (25.7-32.2); Mean Corpuscular Hgb Concent. 33.5 g/dL (32.3-36.5); Mean Platelet Volume 9.6 fL (9.4-12.4); Monocytes % 11.5 % (5.3-12.2); Neutrophil % 47.8 % (34.0-67.9); Platelet Count 282 x10^3/uL (163-337); Red Blood Count 4.51 x10^6/uL (4.63-6.08); Red Cell Distribution Width 14.1 % (11.6-14.4); White Blood Count 5.2 x10^3/uL (4.23-9.07)
[2024-02-03 15:15] LABS: Appearance Clear (Clear); Bacteria None Seen /HPF (None Seen); Bilirubin Negative (Negative); Blood Negative (Negative); Epithelial Cells None Seen /HPF (None Seen); Glucose, Urine Negative (Negative); Hyaline Casts NONE SEEN /LPF (0-2); Ketones Negative (Negative); Leukocyte Esterase Negative (Negative); Nitrite Negative (Negative); Ph 6.5 (4.6-8.0); Protein,Urine Dip Negative (Negative); RBC 0-2 /HPF (0-5); Urobilinogen 0.2 mg/dL (0.2); WBC 0-2 /HPF (0-5)
[2024-02-03 15:21] LABS: ALBUMIN 3.9 g/dL (3.5-5.0); ANION GAP 10.7 MEQ/L (5-15); BILIRUBIN,TOTAL 0.6 mg/dL (0.2-1.3); Calcium 9.1 mg/dL (8.4-10.2); Creatinine 1 1.13 mg/dL (0.66-1.25); EST GLOMERULAR FILTRATION RATE 72.6 ML/MIN; Potassium 4.2 mmol/L (3.5-5.1)
[2024-02-03 15:21] LABS: ADD URINE CULTURE? NO (NO)
--- NOTE | 2024-02-03 16:31 | XRAY ---
Indication: Left abdomen pain 2 months. Multiple contiguous axial images obtained through the abdomen and pelvis without contrast. Comparison: April 04, 2023 Lung bases demonstrates mild dependent atelectasis. No infiltrate or effusion. Heart is now borderline enlarged. Stable small hiatal hernia. Noncontrasted stomach and bowel loops appear nonobstructed again with normal appendix. No free fluid/air. Remaining liver, gallbladder, pancreas, spleen, adrenal glands, kidneys, ureters, and bladder are unremarkable for noncontrast exam. There remains minimal scattered aortoiliac calcifications without AAA. Again right iliac and common femoral stents. Lack of IV contrast precludes further characterization. Osseous structures intact again with mild degenerative changes throughout spine, both hips, and mild levoscoliosis. Stable small fatty right inguinal hernia. Impression: 1. Again scattered arteriosclerotic disease with right iliac/common femoral stents. Lack of IV contrast precludes further characterization. 2. New borderline cardiomegaly without CHF. 3. Chronic findings including hiatal hernia, fatty right inguinal hernia, and chronic bony findings. 4. Remaining CT abdomen/pelvis without contrast exam is negative.
== END 2024-02-03 17:20 ==
LOC: ED 14:18
DX: R10.9 Unspecified abdominal pain (principal); R11.2 Nausea with vomiting, unspecified; I10 Essential (primary) hypertension; Z79.899 Other long term (current) drug therapy; Z72.0 Tobacco use
CPT/HCPCS: 36000; 36415; 74176; 80053; 81001; 82150; 83690; 85025; 99283

== ENCOUNTER 2024-02-10 13:06 | Emergency (ER) | payer OTHER ==
--- NOTE | 2024-02-10 13:10 | ERPHSYRPT ---
- History of Present Illness Time Seen by Provider: 02/10/24 13:10 Historian: patient, family Exam Limitations: no limitations Physician History: 64 y/o white male seen here one week ago for same sx. that is, left side abd pain. this pain has been present for over 2 months. did not obtain an outpt appt as instructed. pt pcp at [facility]. told by them today to go to ed. no cp. no sob. no diarrhea. pt has had sig abd surgery in past to have a abib performed. last visit and today he refuses narcotic pain meds. Timing/Duration: other (pain not worse than one week ago.) Quality: aching Abdominal Pain Onset Location: LUQ, LLQ Pain Radiation: other (medially towards umbilicus. ) Severity of Pain-Max: moderate Severity of Pain-Current: moderate Associated Symptoms: denies symptoms, No chest pain, No diarrhea, No loss of appetite, No nausea, No shortness of breath Previous symptoms: same symptoms as today, recently seen, recently treated Allergies/Adverse Reactions: cyclobenzaprine [From Flexeril] Allergy (Verified 02/10/24 13:22) morphine Allergy (Verified 02/10/24 13:22) gabapentin Adverse Reaction (Verified 02/10/24 13:22) Home Medications: Levothyroxine Sodium [Synthroid] 25 mcg PO DAILY 12/21/22 [History] Metoprolol Tartrate 25 mg [Lopressor 25MG Tab] 25 mg PO DAILY 12/21/22 [History] Pantoprazole 20 mg [Protonix 20MG Tablet] 20 mg PO DAILY 12/21/22 [History] Vit D3/Vit K2/Calc Frutoborate [Move Free [id number]] 1 each PO DAILY 12/21/22 [History] Prednisone 10 mg [Deltasone 10 mg] 10 mg PO DAILY 04/04/23 [History] Hx Tetanus, Diphtheria Vaccination/Date Given: No Hx Influenza Vaccination/Date Given: Yes Hx Pneumococcal Vaccination/Date Given: Yes Travel Risk - International Travel Have you traveled outside of the country in past 3 weeks: No - Emerging Infectious Disease Are you exhibiting symptoms associated with any current EIDs: No - Review of Systems Constitutional: No Symptoms Eyes: No Symptoms Ears, Nose, & Throat: No Symptoms Respiratory: No Symptoms Cardiac: No Symptoms Abdominal/Gastrointestinal: Abdominal Pain (left side) Genitourinary Symptoms: No Symptoms Musculoskeletal: No Symptoms Skin: No Symptoms Neurological: No Symptoms Psychological: No Symptoms Endocrine: No Symptoms Hematologic/Lymphatic: No Symptoms Immunological/Allergic: No Symptoms All Other Systems: Reviewed and Negative - Past Medical History Pertinent Past Medical History: Yes Cardiac History: Arrhythmia, Coronary Artery Disease, Hypertension Endocrine Medical History: Hypothyroidism Musculoskeletal History: Arthritis, Degenerative Disk Disease GI Medical History: GERD Other Medical History: shoulder and neck pain - Past Surgical History Past Surgical History: Yes Musculoskeletal: Orthopedic Surgery Other Surgical History: ablation, arotic bypass, neck - Social History Smoking Status: Current every day smoker How long have you smoked: years Exposure to second hand smoke: Yes Drug Use: none Patient Lives Alone: No - Social Determinants of Health Will the patient participate in the screening: Yes Do you worry about a steady place to live?: No In the past 12 months,have you had to go without utilities?: No Transportation Issues: No Has anyone in your support network made you feel unsafe?: No Have you or anyone in your house had to go without enough: No - Nursing Vital Signs Nursing Vital Signs: Initial Vital Signs Temperature 96.9 F 02/10/24 13:13 Pulse Rate 66 02/10/24 13:13 Blood Pressure 176/100 02/10/24 13:13 O2 Sat by Pulse Oximetry 100 02/10/24 13:13 Pain Scale Pain Intensity 6 - Physical Exam General Appearance: no apparent distress, alert, anxiety Eye Exam: PERRL/EOMI, eyes nml inspection Ears, Nose, Throat Exam: normal ENT inspection, moist mucous membranes Neck Exam: normal inspection, non-tender, supple, full range of motion Respiratory Exam: normal breath sounds, lungs clear, airway intact, No chest tenderness, No respiratory distress Cardiovascular Exam: regular rate/rhythm, normal heart sounds, normal peripheral pulses Gastrointestinal/Abdomen Exam: soft, normal bowel sounds, tenderness (left side to palpation), guarding, No rebound Rectal Exam: not done Back Exam: normal inspection, normal range of motion, No CVA tenderness, No vertebral tenderness Extremity Exam: normal inspection, normal range of motion, pelvis stable Neurologic Exam: alert, oriented x 3, cooperative, 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, normal mood/affect, nml cerebellar function, nml station & gait, sensation nml Skin Exam: normal color, warm, dry Lymphatic Exam: No adenopathy SpO2 Interpretation: normal O2 Delivery: Room Air - Course Nursing assessment & vital signs reviewed: Yes Ordered Tests: Active Orders 24 hr Category Date Time Status ABDOMEN AND PELVIS W/0 CONTRAS [CT] Stat Exams 02/10/24 13:56 Completed AMYLASE Stat Lab 02/10/24 14:08 Completed CBC W DIFF Stat Lab 02/10/24 14:08 Completed CMP Stat Lab 02/10/24 14:08 Completed LIPASE Stat Lab 02/10/24 14:08 Completed UA W/RFX UR CULTURE Stat Lab 02/10/24 14:05 Completed Lab/Rad Data: Laboratory Result Diagrams 02/10/24 14:08 02/10/24 14:08 Laboratory Results 02/10/24 02/10/24 02/10/24 Range/Units 14:08 14:08 14:05 WBC 6.9 (4.23-9.07) x10^3/uL RBC 4.41 L (4.63-6.08) x10^6/uL Hgb 13.6 L (13.7-17.5) g/dL Hct 41.7 (40.1-51.0) % MCV 94.6 H (79.0-92.2) fL MCH 30.8 (25.7-32.2) pg MCHC 32.6 (32.3-36.5) g/dL RDW 14.0 (11.6-14.4) % Plt Count 245 (163-337) x10^3/uL MPV 9.3 L (9.4-12.4) fL Gran % 62.7 (34.0-67.9) % Immature Gran % (Auto) 0.3 (0.001-0.429) % Nucleat RBC Rel Count 0.0 (0.00-0.2) % Eos # (Auto) 0.07 (0.04-0.54) x10^3/uL Immature Gran # (Auto) 0.02 (0.001-0.031) x10^3u/L Absolute Lymphs (auto) 1.78 (1.32-3.57) x10^3/uL Absolute Monos (auto) 0.63 (0.30-0.82) x10^3/uL Absolute Nucleated RBC 0.00 (0.00-0.012) x10^3u/L Lymphocytes % 25.9 (21.8-53.1) % Monocytes % 9.2 (5.3-12.2) % Eosinophils % 1.0 (0.8-7.0) % Basophils % 0.9 (0.2-1.2) % Absolute Granulocytes 4.32 (1.78-5.38) x10^3/uL Basophils # 0.06 (0.01-0.08) x10^3/uL Sodium 135 (135-145) mmol/L Potassium 4.5 (3.5-5.1) mmol/L Chloride 104 (98-107) mmol/L Carbon Dioxide 28 (22-30) mmol/L Anion Gap 8.5 (5-15) MEQ/L BUN 23 H (9-20) mg/dL Creatinine 1.21 (0.66-1.25) mg/dL Estimated GFR 66.9 ML/MIN Glucose 98 (74-106) mg/dL Calcium 9.0 (8.4-10.2) mg/dL Total Bilirubin 0.40 (0.2-1.3) mg/dL AST 24 (17-59) U/L ALT 23 (0-50) U/L Alkaline Phosphatase 120 (38-126) U/L Serum Total Protein 6.7 (6.3-8.2) g/dL Albumin 3.9 (3.5-5.0) g/dL Amylase 105 (30-110) U/L Lipase 38 (23-300) U/L Urine Color Yellow (Yellow) Urine Appearance Clear (Clear) Urine pH 6.5 (4.6-8.0) Ur Specific [place] 1.015 (1.005-1.030) Urine Protein Negative (Negative) Urine Glucose (UA) Negative (Negative) mg/dL Urine Ketones Negative (Negative) Urine Blood Negative (Negative) Urine Nitrite Negative (Negative) Urine Bilirubin Negative (Negative) Urine Urobilinogen 0.2 (0.2) mg/dL Ur Leukocyte Esterase Negative (Negative) U Hyaline Cast (Auto) NONE SEEN (0-2) /LPF Urine Microscopic RBC 0-2 (0-5) /HPF Urine Microscopic WBC 0-2 (0-5) /HPF Ur Epithelial Cells None Seen (None Seen) /HPF Urine Bacteria None Seen (None Seen) /HPF Urine Culture Reflexed NO (NO) - Progress Progress: unchanged Progress Note: 02/10/24 14:54 my medical decision making and the assignment of mod complexity to this pts medical issue today is based on review of pmh, medication list, drug allergy list, hpi and physical findings on exam. w/u includes cbc, cmp, amylase, lipase, ua ct a/p without contrast diff dx includes but not limited to pancreatitis, uti, bowel obstruction, musculoskeletal pain, colitis 02/10/24 15:54 i interpreted pt lab results. no acute or emergent findings. ct a/p without interpreted by radiologist. no acute intraabd/pelvic abnormalities. right renal cyst. atherosclerotic changes of aorta and its branches Counseled pt/family regarding: lab results, diagnosis, need for follow-up, rad results Medical Desision Making - Independent Historian Additional History obtained from: Spouse - Diagnostic Testing Diagnostic test were ordered, analyzed, and reviewed by me: Yes Radiological Interpretation: Reviewed by me, Teleradiologist Report - Risk of complications Low Risk: Low risk of morbidity from additional dx testing or treatment - Departure Departure Disposition: Home Clinical Impression: Chronic abdominal pain Condition: Stable Critical Care Time: No Referrals: HOSPITAL,'S [Primary Care Provider] - Follow up/PCP as directed Additional Instructions: continue all your medications as prescribed. call your primary provider today to make arrangement for further evaluation and management
[2024-02-10 13:22] VITALS: PULSE 66; TEMP 96.9; O2SAT 100
[2024-02-10 14:08] LABS: Absolute Neutrophil Ct (ANC) 4.32 x10^3/uL (1.78-5.38); BASOPHIL % 0.9 % (0.2-1.2); Basophil (Absolute #) 0.06 x10^3/uL (0.01-0.08); Eosinophil (Absolute #) 0.07 x10^3/uL (0.04-0.54); Hematocrit 41.7 % (40.1-51.0); Hemoglobin 13.6 g/dL (13.7-17.5); IMMATURE GRAN # 0.02 x10^3u/L (0.001-0.031); IMMATURE GRAN % 0.3 % (0.001-0.429); Lymphocyte (Absolute #) 1.78 x10^3/uL (1.32-3.57); Lymphocytes % 25.9 % (21.8-53.1); Mean Cell Volume 94.6 fL (79.0-92.2); Mean Corpuscular Hemoglobin 30.8 pg (25.7-32.2); Mean Corpuscular Hgb Concent. 32.6 g/dL (32.3-36.5); Mean Platelet Volume 9.3 fL (9.4-12.4); Monocyte (Absolute #) 0.63 x10^3/uL (0.30-0.82); Monocytes % 9.2 % (5.3-12.2); Neutrophil % 62.7 % (34.0-67.9); Platelet Count 245 x10^3/uL (163-337); Red Blood Count 4.41 x10^6/uL (4.63-6.08); White Blood Count 6.9 x10^3/uL (4.23-9.07)
[2024-02-10 14:17] LABS: Appearance Clear (Clear); Bacteria None Seen /HPF (None Seen); Bilirubin Negative (Negative); Blood Negative (Negative); Epithelial Cells None Seen /HPF (None Seen); Glucose, Urine Negative (Negative); Hyaline Casts NONE SEEN /LPF (0-2); Ketones Negative (Negative); Leukocyte Esterase Negative (Negative); Nitrite Negative (Negative); Ph 6.5 (4.6-8.0); Protein,Urine Dip Negative (Negative); RBC 0-2 /HPF (0-5); Specific Gravity 1.015 (1.005-1.030); Urobilinogen 0.2 mg/dL (0.2); WBC 0-2 /HPF (0-5)
[2024-02-10 14:19] LABS: ADD URINE CULTURE? NO (NO)
[2024-02-10 14:23] LABS: ALBUMIN 3.9 g/dL (3.5-5.0); ANION GAP 8.5 MEQ/L (5-15); BILIRUBIN,TOTAL 0.4 mg/dL (0.2-1.3); Creatinine 1 1.21 mg/dL (0.66-1.25); EST GLOMERULAR FILTRATION RATE 66.9 ML/MIN; Potassium 4.5 mmol/L (3.5-5.1); Total Protein 6.7 g/dL (6.3-8.2)
--- NOTE | 2024-02-10 15:48 | XRAY ---
CLINICAL HISTORY: L abd pain COMPARISON: prior CT dated 02/03/2024 TECHNIQUE: A CT scan of the abdomen and pelvis was performed without IV contrast. No oral contrast. Coronal and sagittal reconstructive images were also obtained. One of the following dose-reduction techniques was utilized for this exam. Automated exposure control, adjustment of the mA and/or kV according to patient size, and use of iterative reconstruction. DLP: 411.51mGy-cm, CTDI:7.45 mGy FINDINGS: A scan through the lower chest reveals an unremarkable lung basis and heart. Abdomen: The liver is of average size and measures 13.5 cm. No focal or diffuse parenchymal abnormality. The portal vein, intrahepatic biliary radicals, and the bile ducts are normal. The gallbladder is distended and shows no definite stones. There is no evidence of wall thickening/ pericholecystic collection. The spleen, pancreas, and adrenal glands are unremarkable. Three small splenic hilar splenules or LNs noted. The kidneys are unremarkable. They are normal in size and shape. No calculi or hydronephrosis. The stable appearance of a small right renal simple cortical cyst measuring 1.1 cm. The ascending colon, the transverse colon, the descending colon, visualized small bowel loops are unremarkable. There is no evidence of significant enlargement of the mesenteric or retroperitoneal lymph nodes. Atherosclerotic changes of the aorta and its branches with a right external iliac stent. Pelvis: The urinary bladder is unremarkable. The rectosigmoid colon is unremarkable. The prostate is of average size. The suggestion of a small fat-containing umbilical hernia was noted. Bilateral small fat-containing inguinal hernia. Multiple pelvic phleboliths were noted. The pelvic vasculature is unremarkable. No evidence of pelvic lymphadenopathy. No definite bony abnormalities could be depicted. IMPRESSION: 1. Limited organ parenchymal evaluation within the limitations of non-contrast study. 2. The stable appearance of the small right renal simple cortical cyst. 3. Atherosclerotic changes of the aorta and its branches with a right external iliac stent. 4. No other significant acute intra-abdominal findings/interval changes were noted. Electronically Signed by: Alejandro Abreu MD. (02/10/2024 15:43:23 EDT)
[2024-02-10 16:03] VITALS: BP 154/94
== END 2024-02-10 16:06 | disposition home or self-care (01) ==
LOC: ED 13:06
DX: G89.29 Other chronic pain (principal); R10.9 Unspecified abdominal pain; I10 Essential (primary) hypertension; Z79.899 Other long term (current) drug therapy; Z72.0 Tobacco use
CPT/HCPCS: 36415; 74176; 80053; 81001; 82150; 83690; 85025; 99282